=== PATIENT | female | born 1990 | race African-American/Black ===

== ENCOUNTER 2018-02-26 11:42 | Emergency (ER) | payer OTHER ==
[2018-02-26 12:04] VITALS: TEMP 98.2; BMI 28.3
--- NOTE | 2018-02-26 12:08 | PDOC ---
History of Present Illness - General Chief Complaint: Nausea/Vomiting Stated Complaint: ABD PAIN Time Seen by Provider: 02/26/18 12:08 Past History - Past Medical History Allergies/Adverse Reactions: Allergies Allergy/AdvReac Type Severity Reaction Status Date / Time No Known Allergies Allergy Verified 02/26/18 12:03 COPD: No CHF: No - Suicide/Smoking/Psychosocial Hx Smoking History: Never smoked Have you smoked in the past 12 months: No Information on smoking cessation initiated: No Hx Alcohol Use: No Drug/Substance Use Hx: No *Physical Exam - Vital Signs Last Vital Signs Temp Pulse Resp BP Pulse Ox 98.2 F 101 H 16 141/82 100 02/26/18 12:01 02/26/18 12:01 02/26/18 12:01 02/26/18 12:01 02/26/18 12:01 Moderate Sedation - Procedure Monitoring Vital Signs: Procedure Monitoring Vital Signs Temperature 98.2 F 02/26/18 12:01 Pulse Rate 101 H 02/26/18 12:01 Respiratory Rate 16 02/26/18 12:01 Blood Pressure 141/82 02/26/18 12:01 O2 Sat by Pulse Oximetry (%) 100 02/26/18 12:01
[2018-02-26] MEDS ORDERED: SODIUM CHLORIDE 1,000 ML IV STA (12:20)
[2018-02-26] MEDS ORDERED: ONDANSETRON *ODT* 4 MG TABLET SL ONE (12:23)
[2018-02-26] MEDS ORDERED: FAMOTIDINE 20 MG/50 ML IVPB 20 MG/50 ML MG IVPB ONE ×2 (12:23→12:30)
[2018-02-26] MEDS ORDERED: ONDANSETRON *ODT* 4 MG TABLET ONE (12:30)
--- NOTE | 2018-02-26 12:31 | PDOC ---
History of Present Illness - General History Source: Patient Exam Limitations: Clinical Condition - History of Present Illness Initial Comments: 02/26/18 12:25 Patient with no significant past history present with complaint of left lower quadrant pain, diarrhea, vomiting since overnight. Patient report vomiting 16 times overnight. Patient described abdominal pain as aching cramping left lower abdominal pain. she reported 2 episodes of diarrhea overnight. Patient reported last menstrual period January 24 and on her menstrual period now. Patient denies weakness, history of abdominal surgery or procedures. She denies any other symptoms Timing/Duration: other (12hours) <Charlie Holt - Last Filed: 02/26/18 16:28> <Laura Lewis - Last Filed: 02/26/18 16:48> - General Chief Complaint: Nausea/Vomiting Stated Complaint: ABD PAIN Time Seen by Provider: 02/26/18 12:08 Past History - Past Medical History COPD: No CHF: No - Suicide/Smoking/Psychosocial Hx Smoking History: Never smoked Have you smoked in the past 12 months: No Information on smoking cessation initiated: No Hx Alcohol Use: No Drug/Substance Use Hx: No <Charlie Holt - Last Filed: 02/26/18 16:28> <Laura Lewis - Last Filed: 02/26/18 16:48> - Past Medical History Allergies/Adverse Reactions: Allergies Allergy/AdvReac Type Severity Reaction Status Date / Time No Known Allergies Allergy Verified 02/26/18 12:03 Home Medications: Ambulatory Orders Loperamide HCl/Simethicone [Imodium Multi-Symptom Rel Cplt] 1 each PO Q8H PRN # 12 tablet 02/26/18 Ondansetron [Zofran Odt -] 4 mg SL Q8H PRN #12 od.tablet 02/26/18 Review of Systems - Review of Systems Able to Perform ROS?: Yes Is the patient limited [place] proficient: No Constitutional: No: Chills, Fever, Malaise, Weakness Respiratory: No: Symptoms reported Cardiac (ROS): No: Symptoms Reported ABD/GI: Yes: Diarrhea, Nausea, Vomiting, Abdominal cramping (LLQ). No: Abdominal Distended, Abd. Pain w/ defecation, Blood Streaked Bowels, Constipated , Difficulty Swallowing, Poor Appetite, Rectal Bleeding, Indigestion : No: Burning, Dysuria, Discharge, Frequency, Flank Pain, Hematuria, Urgency Musculoskeletal: No: Muscle Pain All Other Systems: Reviewed and Negative <Charlie Holt - Last Filed: 02/26/18 16:28> *Physical Exam - Vital Signs Last Vital Signs Temp Pulse Resp BP Pulse Ox 98.2 F 101 H 16 141/82 100 02/26/18 12:01 02/26/18 12:01 02/26/18 12:01 02/26/18 12:01 02/26/18 12:01 - Physical Exam Comments: 02/26/18 12:29 GENERAL: Well developed, well nourished. Awake and alert. No acute distress. HEENT: Normocephalic, No conjunctival pallor. Sclera are non-icteric. NECK: Supple. Full ROM. CARDIOVASCULAR: Regular rate and rhythm. No murmurs, rubs, or gallops. Distal pulses are 2+ and symmetric. PULMONARY: No evidence of respiratory distress. Lungs clear to auscultation bilaterally. No wheezing, rales or rhonchi. ABDOMINAL: Mild tenderness to palpation on periumbilical and left lower quadrant. Soft. Non-distended. No rebound or guarding. No organomegaly. Diffuse hyperactive bowel sounds. SKIN: Warm and dry. Normal capillary refill. No jaundice. NEUROLOGICAL: Alert, awake, appropriate. Gait is normal without ataxia. PSYCHIATRIC: Cooperative. Good eye contact. Appropriate mood General Appearance: Yes: Nourished, Appropriately Dressed. No: Apparent Distress <Charlie Holt - Last Filed: 02/26/18 16:28> - Vital Signs Last Vital Signs Temp Pulse Resp BP Pulse Ox 98.2 F 89 18 134/78 100 02/26/18 16:37 02/26/18 16:37 02/26/18 16:37 02/26/18 16:37 02/26/18 16:37 <Laura Lewis - Last Filed: 02/26/18 16:48> Moderate Sedation - Procedure Monitoring Vital Signs: Procedure Monitoring Vital Signs Temperature 98.2 F 02/26/18 12:01 Pulse Rate 101 H 02/26/18 12:01 Respiratory Rate 16 02/26/18 12:01 Blood Pressure 141/82 02/26/18 12:01 O2 Sat by Pulse Oximetry (%) 100 02/26/18 12:01 <Charlie Holt - Last Filed: 02/26/18 16:28> - Procedure Monitoring Vital Signs: Procedure Monitoring Vital Signs Temperature 98.2 F 02/26/18 16:37 Pulse Rate 89 02/26/18 16:37 Respiratory Rate 18 02/26/18 16:37 Blood Pressure 134/78 02/26/18 16:37 O2 Sat by Pulse Oximetry (%) 100 02/26/18 16:37 <Laura Lewis - Last Filed: 02/26/18 16:48> ED Treatment Course - LABORATORY CBC & Chemistry Diagram: 02/26/18 12:38 02/26/18 12:47 <Charlie Holt - Last Filed: 02/26/18 16:28> - LABORATORY CBC & Chemistry Diagram: 02/26/18 12:38 02/26/18 12:47 - ADDITIONAL ORDERS Additional order review: Laboratory Results 02/26/18 02/26/18 12:47 12:47 Sodium 141 Potassium 4.2 Chloride 107 Carbon Dioxide 25 Anion Gap 9 BUN 15 Creatinine 0.6 Creat Clearance w eGFR > 60 Random Glucose 105 Calcium 9.0 Total Bilirubin 0.8 AST 19 ALT 21 Alkaline Phosphatase 60 Total Protein 8.0 Albumin 4.8 Urine Color Yellow Urine Appearance Slcloudy Urine pH 5.0 Ur Specific Merlin 1.031 Urine Protein Negative Urine Glucose (UA) Negative Urine Ketones Negative Urine Blood 3+ H Urine Nitrite Negative Urine Bilirubin Negative Urine Urobilinogen Negative Ur Leukocyte Esterase Negative Urine WBC (Auto) 6 Urine RBC (Auto) 4 Ur Epithelial Cells Few Urine Mucus Rare Urine HCG, Qual Negative 02/26/18 12:38 RBC 4.83 MCV 80.7 MCHC 31.0 L RDW 14.5 MPV 8.6 Neutrophils % [employer] Lymphocytes % [employer] Monocytes % [employer] Eosinophils % [employer] Basophils % [employer] - Medications Given in the ED: ED Medications Discontinued Medications Generic Name Dose Route Start Last Admin Trade Name Freq PRN Reason Stop Dose Admin Sodium Chloride 1,000 mls @ 1,000 mls/hr 02/26/18 12:20 02/26/18 12:45 Normal Saline - IV 02/26/18 13:19 1,000 mls/hr ASDIR STA Administration Famotidine/Sodium Chloride 20 mg in 50 mls @ 100 mls/hr 12/09/18 12:23 12:45 Pepcid 20 Mg Premixed Ivpb - IVPB 02/26/18 12:52 100 mls/hr ONCE ONE Administration Sodium Chloride 1,000 mls @ 125 mls/hr 02/26/18 14:30 02/26/18 16:05 Normal Saline - IV 125 mls/hr ASDIR SARAH Administration Ondansetron HCl 4 mg 02/26/18 12:23 02/26/18 12:45 Zofran Odt - SL 02/26/18 12:24 4 mg ONCE ONE Administration <Laura Lewis - Last Filed: 02/26/18 16:48> Medical Decision Making - Medical Decision Making 02/26/18 12:30 Patient with no significant past medical history present with complaint of left lower quadrant pain with nausea vomiting and diarrhea since overnight. Exam significant for mild tenderness to periumbilical and left lower quadrant area without guarding or rebound. Exam shows diffuse hyperactive bowel sounds. UA, a urine culture, CBC, CMP and urine HCG labs ordered. Zofran 4 mg sublingual and Pepcid 20 mg IV ordered. Will consider abdominal imaging after lab results 02/26/18 15:19 wbc and CMP with no acute abnormal findings. abd/pelvis CT shows no acute findings. pt symptoms likely viral gastroenteritis. pt stable for discharge with GI follow-up <Charlie Holt - Last Filed: 02/26/18 16:28> *DC/Admit/Observation/Transfer - Discharge Dispostion Decision to Admit order: No <Charlie Holt - Last Filed: 02/26/18 16:28> - Attestations Physician Attestion: I reviewed the case with the mid-level practitioner and agree with the mid- level practitioner's assessment, diagnosis and disposition. <Laura Lewis - Last Filed: 02/26/18 16:48> Diagnosis at time of Disposition: Gastroenteritis Nausea & vomiting Qualifiers: Vomiting type: unspecified Vomiting Intractability: non-intractable Qualified Code(s): R11.2 - Nausea with vomiting, unspecified Diarrhea Qualifiers: Diarrhea type: unspecified type Qualified Code(s): R19.7 - Diarrhea, unspecified - Discharge Dispostion Disposition: HOME Condition at time of disposition: Stable - Prescriptions Prescriptions: Loperamide HCl/Simethicone [Imodium Multi-Symptom Rel Cplt] 1 each PO Q8H PRN # 12 tablet PRN Reason: abdominal pains and diarrhea Ondansetron [Zofran Odt -] 4 mg SL Q8H PRN #12 od.tablet PRN Reason: nausea - Referrals Referrals: Sudarshan Coronel DO [Staff Physician] - - Patient Instructions Printed Discharge Instructions: DI for Viral Gastroenteritis -- Adult, DI for Vomiting -- Adult Additional Instructions: take medications as prescribed as needed for vomiting and diarrhea. increase fluid intake. follow-up with referred GI doctor if symptoms persists for more than 3 days - Post Discharge Activity Forms/Work/School Notes: Back to School
[2018-02-26 13:31] LABS: HEMOGLOBIN 12.1 GM/dL (10.7-15.3); MEAN CELL VOLUME 80.7 fl (80-96); MEAN PLT VOLUME 8.6 fl (7.5-11.1); PLATELET COUNT 254 K/MM3 (134-434); RBC 4.83 M/mm3 (3.60-5.2); RDW 14.5 % (11.6-15.6); WHITE BLOOD COUNT 6.6 K/mm3 (4.0-10.0)
[2018-02-26 13:35] LABS: URINE APPEARANCE SLCLOUDY; URINE BILIRUBIN NEGATIVE (<2.0 mg/dL); URINE COLOR YELLOW; URINE GLUCOSE (UA) NEGATIVE (NEGATIVE); URINE KETONE NEGATIVE (NEGATIVE); URINE LEUK ESTERASE NEGATIVE (NEGATIVE); URINE NITRITE NEGATIVE (NEGATIVE); URINE PROTEIN NEGATIVE (NEGATIVE); URINE UROBILINOGEN NEGATIVE mg/dL (0.2-1.0)
[2018-02-26 13:39] LABS: EPI CELLS FEW /HPF (FEW); URINE MUCUS RARE
[2018-02-26 13:44] LABS: HCG,QUALITATIVE URINE Negative
[2018-02-26 13:53] LABS: ALBUMIN 4.8 g/dl (3.4-5.0); ALK PHOS 60 U/L (45-117); ANION GAP 9 MMOL/L (8-16); BILIRUBIN,TOTAL 0.8 mg/dL (0.2-1); BLOOD UREA NITROGEN 15 mg/dL (7-18); CHLORIDE 107 mmol/L (98-107); CO2 25 mmol/L (21-32); CREATININE 0.6 mg/dL (0.55-1.3); GLUCOSE,RANDOM 105 mg/dL (74-106); POTASSIUM 4.2 mmol/L (3.5-5.1); SGOT/AST 19 U/L (15-37); SGPT/ALT 21 U/L (13-61); SODIUM 141 mmol/L (136-145)
[2018-02-26] MEDS ORDERED: SODIUM CHLORIDE 1,000 ML IV SCH (14:30)
[2018-02-26 15:41] LABS: PLATELET ESTIMATE ADEQUATE
[2018-02-26 16:39] VITALS: BP 134/78; PULSE 89
== END 2018-02-26 16:39 | disposition home or self-care (01) ==
LOC: JER 11:42
PROC: 3E033GC Introduction of Other Therapeutic Substance into Peripheral Vein, Percutaneous Approach (ICD-10-PCS; principal; 2018-02-26)
PROC: 3E0337Z Introduction of Electrolytic and Water Balance Substance into Peripheral Vein, Percutaneous Approach (ICD-10-PCS; 2018-02-26)
DX: R11.2 Nausea with vomiting, unspecified (principal); R19.7 Diarrhea, unspecified
CPT/HCPCS: 36415; 74177-TC; 80053; 81003; 81015; 84703; 85025; 87086; 96361; 96365; 99283-25; J7030; Q0162